=== PATIENT | female | born 1945 | race Caucasian/White ===

== ENCOUNTER → 2017-06-12 | Outpatient (CLI) | payer OTHER, MEDICARE | LOC: RAD 01:13 | DX: Z12.31 Encounter for screening mammogram for malignant neoplasm of breast (principal) ==

== ENCOUNTER → 2017-07-31 | Outpatient (CLI) | payer OTHER, MEDICARE ==
[~2017-07-31] VITALS: Ht 157.5 cm; Wt 67.1 kg
[~2017-07-31] MED LIST: ASPIR 8181 MG PO; CALCIUM 600 +1 EA17 PO; CENTRUM SILVER1 EAC4 PO; METAMUCIL1 EAC1 PO; MOBIC15 MG PO; PROLIA60 MG/1 ML SUBQ; VITAMINC500 PO; ZOCOR20 MG PO
--- NOTE | ~2017-07-31 | S ---
[facility] [place] [address] SURGICAL PATH RPT PROCEDURE Name: ROBYNEVIE Room #: REG VENTURA Saravanan.#: [id number] Admission: 07/31/17 Date of : 49 Discharge: Report #: [id number] Path Case #: [id number] PATHOLOGY REPORT COLLECTION DATE: 07/31/2017 RECEIVED DATE: 08/01/2017 SUBMITTING PHYS: Dr. Maciej Goode OTHER PHYS: Dr. Ismael Christy SPECIMEN(S) RECEIVED: A.Bx of polyp at descending colon B.Bx of polyp in rectum * * * * * * * * * * * * FINAL DIAGNOSIS: A. "BX of polyp at descending colon", biopsy: - Tubular adenoma; no high grade dysplasia. B. "BX of polyp in rectum", biopsy: - Hyperplastic polyp. (CLW:[facility]; 08/02/2017) PATHOLOGIST: Lily Estrada M.D. REPORT ELECTRONICALLY SIGNED BY: Lily Estrada M.D. DATE/TIME: 08/02/2017 14:52 * * * * * * * * * * * * GROSS PATHOLOGY: A. Received in formalin labeled "Evie Carlson BX of polyp at descending colon," are 3 segments of lin soft tissue measuring 0.7 x 0.2 x 0.3 cm in aggregate dimensions and ranging from 0.2 to 0.3 cm in maximum dimension. The specimen is submitted entirely in cassette A1. B. Received in formalin labeled "Evie Tippah, BX of polyp in rectum," is a segment of lin soft tissue measuring 0.3 cm in maximum dimension. The specimen is submitted entirely in cassette B1. ([facility]; 08/01/2017) CLINICAL HISTORY: Pre-OP DX: Hx of polyps Post-OP DX: Diverticulosis, rectal and colon polyps INITIAL CPT CODE(S): A; 78217 B; 03605 Professional services performed by [facility] at [facility] [address] [place] [address] SURGICAL PATH RPT PROCEDURE Name: EVIE CARLSON Room #: [facility].#: [id number] Admission: 07/31/17 Date of : 49 Discharge: Report #: [id number] Path Case #: [id number] , [place] [address] Technical services performed by [facility] at [address] [place] [address], [facility] [address] [address]. [facility] [place] [address] PHONE: [phone] DIRECTOR: Stephane Manjarrez M.D. * * * END OF REPORT * * *
--- NOTE | ~2017-07-31 | P ---
[facility] [place] [address] PROCEDURE REPORT Name: PATRICK CARLSON Room #: REG [facility]#: [id number] Admission: 07/31/17 Attend Phys: Maciej Jones Discharge: Date of : 49 Report #: [id number] THIS REPORT FOR: //name// CC: Maciej Christy MD DATE OF SERVICE: 07/31/2017 PROCEDURE PERFORMED: Colonoscopy with biopsies. HISTORY OF PRESENT ILLNESS: The patient is a 72-year-old female who presents for a screening colonoscopy. She denies any symptoms. No family history of colon cancer. PROCEDURE: The risks and benefits of the procedure were explained to the patient, those risks including, but not limited to bleeding, perforation, and the risk of sedation. She understood these risks and gave informed consent. Sedation was given using propofol per anesthesia. Next, a digital rectal exam showed small external hemorrhoid, otherwise normal. Next, using a standard Fujinon colonoscope, the scope was placed in the patient's anus and advanced under direct vision to the cecum. The overall prep was excellent. The cecum and ileocecal valve were normal in appearance. The ascending and transverse colon were normal. In the descending colon, a 4-mm sessile polyp was noted, this was removed with cold forceps, otherwise normal. A few diverticula were noted in the sigmoid colon, no evidence of inflammation, otherwise normal. In the rectum, there was a 3-mm sessile polyp also removed with cold forceps. On retroflexion, no abnormalities were noted. Scope was then withdrawn and the procedure terminated. The patient tolerated the procedure well. IMPRESSION: 1. Two small colonic polyps. 2. Sigmoid diverticulosis. 3. Small external hemorrhoid. 4. Otherwise, normal colonoscopy. RECOMMENDATIONS: 1. Await biopsy results. 2. If polyps are hyperplastic, repeat in 10 years; if adenomatous polyp, repeat in [address] [address] PROCEDURE REPORT Name: PATRICK CARLSON Hiwot [facility] [id number] Admission: 07/31/17 Attend Phys: Maciej Jones Discharge: Date of : 49 Report #: [id number] Thank you for allowing me to participate in her care. <ELECTRONICALLY SIGNED> By: Maciej Goode MD 08/03/17 [id number] Maciej Goode MD /nt
== END | disposition home or self-care (01) ==
LOC: GI 07-15 11:37
DX: Z12.11 Encounter for screening for malignant neoplasm of colon (principal); D12.4 Benign neoplasm of descending colon; K57.30 Diverticulosis of large intestine without perforation or abscess without bleeding; D12.8 Benign neoplasm of rectum; K64.4 Residual hemorrhoidal skin tags; E78.5 Hyperlipidemia, unspecified; Z98.890 Other specified postprocedural states
CPT/HCPCS: 62110; 62900

== ENCOUNTER → 2019-07-02 | Outpatient (CLI) | payer OTHER, MEDICARE | LOC: RAD 10:16 | DX: Z12.31 Encounter for screening mammogram for malignant neoplasm of breast (principal) ==

== ENCOUNTER → 2020-07-26 | Outpatient (CLI) | payer OTHER, MEDICARE | LOC: BC 08:28 | DX: Z12.31 Encounter for screening mammogram for malignant neoplasm of breast (principal) ==

== ENCOUNTER → 2021-08-09 | Outpatient (CLI) | payer OTHER, MEDICARE | LOC: BC 08:53 | PROVIDERS: ATTEND Family Medicine | DX: Z12.31 Encounter for screening mammogram for malignant neoplasm of breast (principal) ==